=== PATIENT | female | born 1985 ===

== ENCOUNTER 2023-09-14 08:41 | Outpatient (REF) | payer OTHER, SELFPAY ==
--- NOTE | ~2023-09-14 | US_ITS ---
EXAMINATION: US RETROPERITONEAL COMPLETE (RENAL) CLINICAL INFORMATION: Hypertension, follow up left angiomyolipoma. COMPARISON: None available. TECHNIQUE: Real-time imaging of the kidneys and bladder. FINDINGS: RIGHT KIDNEY: 10.8 x 5.8 x 6.8 cm (SAG x AP x TRV). The kidney is normal in size, contour, and echogenicity. Renal cortical thickness is normal. No calculi or focal parenchymal lesions. No hydronephrosis. LEFT KIDNEY: 11.9 x 6.9 x 5.7 cm (SAG x AP x TRV). The kidney is normal in size, contour, and echogenicity. Renal cortical thickness is normal. No renal calculi or hydronephrosis. 2.1 x 2.0 x 2.6 cm nonshadowing echogenic focus is seen in the mid kidney. No prior studies are available at this institution for comparison. BLADDER: Well distended and normal. Bilateral ureteral jets are demonstrated. Prevoid bladder volume is 511.0 mL. Postvoid bladder volume is 18.8 mL. US/US retroperitoneal comp IMPRESSION: 1. Normal appearance of the right kidney. 2. 2.6 cm nonshadowing echogenic focus in the mid left kidney. No prior studies are available at this institution for comparison. Comparison with reported prior studies is recommended. If these are not available, CT scan could be obtained for further evaluation. 3. Small post void residual.
== END 2023-09-14 08:42 | disposition home or self-care (01) ==
LOC: HO.UMASIMG 08:41
PROVIDERS: Visit Provider Physician Assistant
DX: I10 Essential (primary) hypertension (principal); E66.9 Obesity, unspecified
CPT/HCPCS: 76770

== ENCOUNTER 2025-03-22 08:37 | Outpatient (REF) | payer OTHER, SELFPAY ==
--- NOTE | ~2025-03-22 | US_ITS ---
EXAMINATION: US RETROPERITONEUM HISTORY: HTN, H/O AML TECHNIQUE: Real-time grayscale ultrasound imaging of the kidneys was performed and images were reviewed. COMPARISON: Correlation is made with a renal ultrasound dated 09/14/2023. FINDINGS: Right kidney: The right kidney measures 12.1 x 4.7 x 6.3 cm. Renal parenchymal echotexture and thickness are normal. There are no masses. There is no hydronephrosis or renal calculi. Left Kidney: The left kidney measures 11.6 x 5.7 x 5.9 cm. Renal parenchymal echotexture and thickness are normal. Again seen is an echogenic mass in the mid to lower pole region measuring 2.1 x 1.7 x 2.3 cm (previously 2.1 x 2.0 x 2.6 cm). There is no hydronephrosis or renal calculi. The urinary bladder is unremarkable. Bilateral ureteral jets are identified. Before voiding, the urinary bladder measured 8.4 x 5.8 x 10.0 cm, for an estimated volume of 253 mL. After voiding, the urinary bladder measured 3.8 x 1.9 x 4.4 cm, for an estimated volume of 17 mL. Incidental note is made of cholelithiasis. US/US retroperitoneal comp IMPRESSION: 1. Again seen is a 2.1 x 1.7 x 2.3 cm echogenic left renal mass. This may represent an angiomyolipoma. However, confirmation with CT or MRI is recommended if this has not already been performed. 2. Post void bladder residual of 17 mL. Electronically signed by: Franklin Garcia MD 03/22/2025 09:26 AM EST
== END 2025-03-22 08:38 ==
LOC: HO.UMASIMG 08:37
PROVIDERS: Visit Provider Physician Assistant
DX: I10 Essential (primary) hypertension (principal); Z85.6 Personal history of leukemia
CPT/HCPCS: 76770

== ENCOUNTER → 2025-03-22 08:39 | Outpatient (BNV) | payer OTHER, SELFPAY | PROVIDERS: Visit Provider Radiology Diagnostic Radiology | DX: N28.89 Other specified disorders of kidney and ureter (principal); I10 Essential (primary) hypertension | CPT/HCPCS: 76770 ==